=== PATIENT | female | born 1945 | race Caucasian/White ===

== ENCOUNTER 2017-02-12 12:57 | Emergency (ER) | payer MEDICARE ==
[2014-08-19 12:07] VITALS: BMI 32.1
[~2017-02-12 12:57] MED LIST: ALENDRONATE SOD70 MG PO; CARAFATE1 G PO; CARAFATE1 G/10 ML PO; DULCOLAX10 MG/SUPP RC; DURAGESIC1 PATCH .1 TRANSDERM; PROAIR HFA8.5 GM INH; PROTONIX40 MG PO; TRAZODONE HCL50 MG PO; ULTRAM50 MG PO
== END 2017-02-12 16:42 | disposition home or self-care (01) ==
LOC: D.ER 12:57
DX: J44.1 Chronic obstructive pulmonary disease with (acute) exacerbation (principal); F17.200 Nicotine dependence, unspecified, uncomplicated